=== PATIENT | male | born 1990 | race Caucasian/White ===

== ENCOUNTER 2021-08-04 14:29 | Emergency (ER) | payer BC, OTHER ==
[2021-08-04] MEDS ORDERED: SODIUM CHLORIDE 0.9% 50 ML IVPB ONE (17:30)
[2021-08-04] MEDS ORDERED: CASIRIVIMAB (REGN10933) (EUA) 600 MG, IMDEVIMAB (REGN10987) (EUA) 600 MG in SODIUM CHLO... IVPB ONE (17:30)
--- NOTE | 2021-08-04 17:49 | ED ---
URI HPI - General Chief Complaint: Upper Respiratory Infection Stated Complaint: Covid+, SOB Time Seen by Provider: 08/04/21 16:49 Source: patient Mode of arrival: ambulatory Limitations: no limitations - History of Present Illness Initial Comments: 31-year-old male patient presents to the emergency department today for evaluation of cough, congestion, loss of taste and smell. States he tested positive for COVID-19 on Saturday. States he started having symptoms on Saturday. Denies any fever or chills. Denies taking any medication at home for his sym ptoms. States he is otherwise healthy. Patient denies any recent rash, shortness of breath, chest pain, abdominal pain, nausea, vomiting, diarrhea, constipation, back pain, numbness, tingling, dizziness, weakness, hematuria, dysuria, urinary urgency, urinary frequency, headache, visual changes, or any other complaints. - Related Data Home Medications Medication Instructions Recorded Confirmed Acetaminophen Tab [Tylenol] 1,000 mg PO ONCE PRN 08/04/21 08/04/21 Allergies Allergy/AdvReac Type Severity Reaction Status Date / Time No Known Allergies Allergy Verified 08/04/21 18:12 Review of Systems ROS Statement: Those systems with pertinent positive or pertinent negative responses have been documented in the HPI. ROS Other: All systems not noted in ROS Statement are negative. Past Medical History Past Medical History: No Reported History History of Any Multi-Drug Resistant Organisms: None Reported Past Surgical History: No Surgical Hx Reported Past Psychological History: No Psychological Hx Reported Smoking Status: Light tobacco smoker Past Alcohol Use History: Occasional Past Drug Use History: None Reported General Exam Limitations: no limitations General appearance: alert, in no apparent distress, other (This is a well- developed, well-nourished adult male in no acute distress.) Respiratory exam: Present: normal lung sounds bilaterally. Absent: respiratory distress, wheezes, rales, rhonchi, stridor Cardiovascular Exam: Present: regular rate, normal rhythm, normal heart sounds. Absent: systolic murmur, diastolic murmur, rubs, gallop, clicks GI/Abdominal exam: Present: soft, normal bowel sounds. Absent: distended, tenderness, guarding, rebound, rigid Neurological exam: Present: alert, oriented X3, CN II-XII intact Psychiatric exam: Present: normal affect, normal mood Skin exam: Present: warm, dry, intact, normal color. Absent: rash Course Vital Signs 08/04/21 08/04/21 08/04/21 15:02 18:06 18:25 Temperature 99.1 F 98.4 F Pulse Rate 94 Pulse Rate [ 88 86 Pulse Oximetery ] Respiratory 20 16 18 Rate Blood Pressure 138/86 Blood Pressure 124/86 123/88 [Left Arm] O2 Sat by Pulse 95 97 96 Oximetry 08/04/21 19:25 Temperature Pulse Rate Pulse Rate [ 88 Pulse Oximetery ] Respiratory 18 Rate Blood Pressure Blood Pressure 133/75 [Left Arm] O2 Sat by Pulse 97 Oximetry Medical Decision Making - Medical Decision Making 31-year-old male patient presents to the emergency department today for evaluation of upper respiratory symptoms. Has had symptoms since Saturday. Did test positive for COVID-19 on Saturday outpatient. Physical examination is unremarkable. He did meet criteria and agreed to receive the monoclonal antibody infusion. He tolerated this well. A be discharged follow-up with his primary care physician for recheck in 1-2 days. Return parameters were discussed in detail. He verbalizes understanding and agrees with this plan. My attending is Dr. Rodriguez. Disposition Clinical Impression: COVID-19 Disposition: HOME SELF-CARE Condition: Good Instructions (If sedation given, give patient instructions): Coronavirus Disease 2019 (COVID-19) Additional Instructions: Tips to help you feel better: -Maintain adequate fluid intake - especially water. -Rest, you are healing your body will require extra sleep. -Eat even if you do not feel like it - broth, jello, toast are fine if you cannot eat full meals. -Take tylenol and motrin alternating (if you have no allergies or have not been instructed to avoid these medications) to help with body aches and fevers. -Obtain over the counter vitamin C, zinc, and vitamin D3. -Take medications as prescribed. Follow-up with your primary care physician for recheck in 1-2 days. Return for any new, worsening, or concerning symptoms. Is patient prescribed a controlled substance at d/c from ED?: No Referrals: None,Stated [Primary Care Provider] - 1-2 days
[2021-08-04 18:07] VITALS: TEMP 98.4
[2021-08-04 19:32] VITALS: RESP 18
[2021-08-04 19:33] VITALS: BP 133/75; PULSE 88
== END 2021-08-04 19:45 | disposition home or self-care (01) ==
LOC: EC 14:29
DX: U07.1 COVID-19 (principal); F17.200 Nicotine dependence, unspecified, uncomplicated
CPT/HCPCS: 99283; Q0244